=== PATIENT | male | born 2000 | race Caucasian/White ===

== ENCOUNTER 2020-11-19 12:57 | Emergency (ER) | payer OTHER, SELFPAY ==
[2020-11-19 13:05] VITALS: BP 126/66; PULSE 81; RESP 18; TEMP 36.9; O2SAT 98
--- NOTE | 2020-11-19 13:13 | ED.URI ---
HPI - URI/Sore Throat General Chief Complaint: Upper Respiratory Infection Stated Complaint: EARACHE/SORE THROAT Source: patient and RN notes reviewed Limitations: no limitations History of Present Illness HPI Narrative: The vaccinated patient, a non-smoker/nondrinker student, presents 1/2-week history of sore throat with very scant cough, congestion. Symptoms are mild, unrelieved OTC preparations like Vicks. He was last tested for Covid before symptom onset; no loss of taste/smell, CP, wheezing/sneezing S OB, vomiting/diarrhea Related Data Allergies Allergy/AdvReac Type Severity Reaction Status Date / Time No Known Allergies Allergy Verified 11/19/20 13:17 Review of Systems Review of Systems: General/Constitutional: No weight loss,fever Eyes: N0: Redness,discharge Ears/Nose/Throat: No: Epistaxis,ear discharge Respiratory: Denies: Hemoptysis Gastrointestinal: No Vomiting, Bleeding-rectal Skin: No Lumps, eruption Neurologic: No Focal Weakness,Sz Hematologic: Denies: Petechiae/Purpura Psychiatric: No: Suicida ideationl All Other Systems: Reviewed and Negative PMFSH Comments At time of signature, agree with nursing past medical, surgical, social and family history. There is no relevant family history pertinent to the presenting complaint Exam Narrative: General Appearance: Well appearing, Well nourished EYE: PERRLA, Conjunctiva clear Ears: Auditory canal normal, TM mostly obscured by wax Nose: Rhinorrhea, Mucousal erythema Mouth/Throat: MM moist, Uvula midline, Pharyngeal erythema Neck: Supple, No adenopathy Respiratory: No respiratory distress, Breath sounds equal, Clear to auscultation Cardiovascular: RRR, No JVD Musculoskeletal: Non tender, Normal strength Skin: Warm, Dry Neurological: A&O x3, CN II-XII intact Psychiatric: Normal mood, Normal affect Course Vital Signs Vital signs: Vital Signs Temperature 98.4 F 11/19/20 13:05 Pulse Rate 81 11/19/20 13:05 Respiratory Rate 18 11/19/20 13:05 Blood Pressure 126/66 11/19/20 13:05 Pulse Oximetry 98 11/19/20 13:05 Temperature 98.4 F 11/19/20 13:05 Pulse Rate 81 11/19/20 13:05 Respiratory Rate 18 11/19/20 13:05 Blood Pressure 126/66 11/19/20 13:05 Pulse Oximetry 98 11/19/20 13:05 MDM - URI/Sore Throat Lab Data Labs: Lab Results 11/19/20 Range/Units 13:12 POC SARS CoV-2 Ag Negative (Negative) Strep Screen Presumptive Negative *(Reference Range: Negative)* Discharge Plan Discharge Clinical Impression: Odynophagia Patient Disposition: Home, Self-Care Condition: Stable Instructions: Pharyngitis (ED) Prescriptions: New azithromycin 250 mg tablet See Rx Instructions .ROUTE .COMPLEX Qty: 6 RF: 0 lidocaine HCl [Lidocaine Viscous] 2 % solution 5 ml MUCOUS MEM QID PRN (Reason: pain) Qty: 100 RF: 0 Follow-up/Referrals: UNKNOWN,DOCTOR [Primary Care Provider] - Stand Alone Forms: Work/School Release IP
== END 2020-11-19 13:58 | disposition home or self-care (01) ==
PROVIDERS: Emergency Provider Emergency Medicine
DX: R13.10 Dysphagia, unspecified (principal); Z20.822 Contact with and (suspected) exposure to COVID-19
CPT/HCPCS: 87081; 87426; 87880; 99213; C9803; G0463

== ENCOUNTER 2021-05-20 13:24 | Emergency (ER) | payer OTHER, SELFPAY ==
[2021-05-20 13:30] VITALS: BP 130/75; PULSE 72; RESP 12; TEMP 36.7; O2SAT 99
--- NOTE | 2021-05-20 13:32 | ED.URI ---
HPI - URI/Sore Throat General Chief Complaint: Upper Respiratory Infection Stated Complaint: COLD/FLU Time Seen by Provider: 05/20/21 13:32 Source: patient Mode of arrival: ambulatory Limitations: no limitations History of Present Illness HPI Narrative: 20-year-old male presents with complaint of mucus and cough for 9 days. Reports the cough is worse at night and when active. Has tried Mucinex DM with no relief. Denies shortness of breath. Denies chest pain. No fever or chills. Patient reports that this is not allergy related reports that he had allergy testing last year for 200 things and he was not allergic to anything. All systems reviewed and negative except as noted above. Related Data Allergies Allergy/AdvReac Type Severity Reaction Status Date / Time No Known Allergies Allergy Verified 11/19/20 13:17 Review of Systems Review of Systems: CONSTITUTIONAL: Denies fever, chills, or sweats. EYES: Denies visual changes, redness, or discharge. ENT: Denies rhinorrhea, congestion, sore throat, or otalgia. CARDIOVASCULAR: Denies chest pain, palpitations, or edema. RESPIRATORY: Reports cough and chest congestion. Denies dyspnea. GASTROINTESTINAL: Denies abdominal pain, nausea, vomiting, or diarrhea. GENITOURINARY: Denies dysuria or hematuria. SKIN: Denies rash or itching. MUSCULOSKELETAL: Denies back pain, joint pain, or myalgia. NEUROLOGIC: Denies headache, numbness, or weakness. PSYCHIATRIC: Denies anxiety or depression. All other systems reviewed are negative, except as documented in HPI. PMFSH Comments At time of signature, agree with nursing past medical, surgical, social and family history. There is no relevant family history pertinent to the presenting complaint. Exam Narrative: GENERAL: This is a well-nourished, well-developed patient, in no apparent distress. HEAD: normocephalic, atraumatic. EYES: PERRL. Sclera clear/white. Vision is grossly intact. EARS: External ears normal, auditory canals clear and without drainage, TMs normal without perforation. Hearing grossly intact. NOSE: External nose normal with no obvious nasal discharge, nares without redness, no rhinorrhea. THROAT: Mucous membranes moist, posterior pharynx clear. NECK: Neck supple, non-tender without lymphadenopathy, masses or thyromegaly. CARDIOVASCULAR: Regular rate and rhythm without murmurs, gallops, or rubs. RESPIRATORY: Clear to auscultation. Breath sounds equal bilaterally. No wheezes, rales, or rhonchi. SKIN: warm, Dry, intact with no suspicious lesions or rash, good texture and turgor. NEURO: awake, alert, and oriented to person, place and time. There were no obvious focal neurologic abnormalities. EXTREMITIES: Normal range of motion to all extremities. Course Course Level of Care: Express Care Visit Vital Signs Vital signs: Vital Signs Temperature 36.7 C 05/20/21 13:30 Pulse Rate 72 05/20/21 13:30 Respiratory Rate 12 05/20/21 13:30 Blood Pressure 130/75 05/20/21 13:30 Pulse Oximetry 99 05/20/21 13:30 Temperature 36.7 C 05/20/21 13:34 Pulse Rate 72 05/20/21 13:34 Respiratory Rate 12 05/20/21 13:34 Blood Pressure 130/75 05/20/21 13:34 Pulse Oximetry 99 05/20/21 13:34 Reviewed MDM - URI/Sore Throat MDM Narrative Medical decision making narrative: Patient is aware of diagnosis, understands and agrees to treatment plan. Anticipatory guidance given. Patient agrees to follow-up as directed and is aware of reasons to seek care at the emergency department. Portions of this record may have been created with voice recognition software Differential Diagnosis Differential diagnosis: Likely upper respiratory infection, croup, viral infection and bronchitis Discharge Plan Discharge Clinical Impression: Acute bronchitis Patient Disposition: Home, Self-Care Condition: Stable Instructions: Antibiotic Form, Acute Bronchitis (ED) Additional Instructions: Take medications as prescribed to gabbi
[2021-05-20 13:34] VITALS: BP 130/75; PULSE 72; RESP 12; TEMP 36.7; O2SAT 99
== END 2021-05-20 13:47 | disposition home or self-care (01) ==
PROVIDERS: Emergency Provider Nurse Practitioner Family
DX: J20.9 Acute bronchitis, unspecified (principal)
CPT/HCPCS: 99213; G0463

== ENCOUNTER 2021-11-15 17:56 | Emergency (ER) | payer OTHER, SELFPAY ==
--- NOTE | 2021-11-15 17:58 | ED.MALEGU ---
HPI - Male Genitourinary General Chief complaint: Urogenital-Male Stated complaint: testicular pain Time Seen by Provider: 11/15/21 17:58 Source: patient Mode of arrival: ambulatory Limitations: no limitations History of Present Illness HPI Narrative: Mr. Valiente is a 20-year-old male patient presenting to the clinic today with complaints of testicular pain that began this afternoon. He reports pain in right testicle began after running this afternoon. He reports that he feels as though his right testicle swollen and he noticed that his scrotal sac was black and blue. He states that it is a dull ache to this area and he thinks he felt a lump over the right testicle. Did ejaculate this afternoon and said it was painful/burning-no blood in ejaculation Related Data Home Medications Medication Instructions Recorded Confirmed No Home Medications 11/15/21 11/15/21 Allergies Allergy/AdvReac Type Severity Reaction Status Date / Time No Known Allergies Allergy Verified 11/15/21 18:03 Review of Systems Review of Systems: Pertinent positives per HPI. Patient denies any fever, chills, rash, headache, visual changes, dizziness, cough, runny nose, sore throat, shortness of breath, chest pain, palpitations, nausea, vomiting, diarrhea, constipation, abdominal pain, or any urinary issues. PMFSH Comments At the time of my signature, I reviewed and agree with the nursing past medical, surgical, social, and family history. There is no relevant family history pertinent to the patient complaint. Exam Narrative: General: Well-developed, well nourished, in no apparent distress. Head: Normocephalic, atraumatic. Cardio: Regular rate and rhythm, s1 and s2 normal, no murmur appreciated. Resp: Clear to auscultation bilaterally, no rhonchi, rales, wheezing or rubs. Abdomen: Soft, pliable, bowel sounds present in all quadrants, non-tender to palpation, no organomegly, no CVAT tenderness. : Normal circumcised male, no lesions or masses noted on the vas deferens or penile shaft, tenderness to palpation over the right testicle, no testicle or scrotal mass palpable, diminished right cremasteric reflex Course Course Emergency Course: Portions of this record may have been created with voice recognition software. Level of Care: Express Care Visit Vital Signs Vital signs: Vital Signs Temperature 37.5 C 11/15/21 18:04 Pulse Rate 110 H 11/15/21 18:04 Respiratory Rate 18 11/15/21 18:04 Blood Pressure 154/84 H 11/15/21 18:04 Pulse Oximetry 100 11/15/21 18:04 Temperature 37.5 C 11/15/21 18:04 Pulse Rate 110 H 11/15/21 18:04 Respiratory Rate 18 11/15/21 18:04 Blood Pressure 154/84 H 11/15/21 18:04 Pulse Oximetry 100 11/15/21 18:04 Vital signs reviewed Transfer Transfered to: [facility] Transportation: Other (Private car) Transfer rationale: Right testicular pain rule out testicular torsion Accepting physician: Dr. York Transfer comments: Transfer via private car MDM - Male Genitourinary MDM Narrative Medical decision making narrative: At the time of visit patient is resting comfortably on the exam table. Complaining of right testicular pain-complaints of swelling, and pain with diminished cremasteric reflex noted. Patient rating pain currently a 4 out of 10 states a dull ache. Recommend further evaluation with ultrasound to rule out testicular torsion. Contacted Alesia who is the charge nurse at [facility] ED and report was given- Dr. York accepted patient. Differential Diagnosis Differential diagnosis: Likely epididymitis, inguinal hernia and other (Variceal, cystocele, testicular torsion) Discharge Plan Discharge Clinical Impression: Testicular pain, right Patient Disposition: Acute Care Hospital Condition: Stable Additional Instructions: You were evaluated by the provider in the Express care today, and it is recommended that you promptly go to the Emergency Room as your illn
[2021-11-15 18:04] VITALS: BP 154/84; PULSE 110; RESP 18; TEMP 37.5; O2SAT 100
== END 2021-11-15 18:21 | disposition short-term general hospital (02) ==
PROVIDERS: Emergency Provider Nurse Practitioner Family
DX: N50.811 Right testicular pain (principal)
CPT/HCPCS: 99212; 99213; G0463

== ENCOUNTER 2021-11-15 18:37 | Emergency (ER) | payer OTHER, SELFPAY ==
--- NOTE | ~2021-11-15 | US_ITS ---
EXAMINATION: US scrotum doppler DATE: 11/15/2021 20:01 INDICATION: Scrotal pain, eval for torsion . TECHNIQUE: Grayscale and Doppler ultrasound images of the testes were obtained. COMPARISON: None. FINDINGS: The right testis measures 4.7 x 3.3 x 2.0 cm. The left testis measures 4.9 x 3.3 x 1.9 cm. No testicular mass. There is normal vascular flow to both testes. The right epididymis is normal with normal vascular flow. The left epididymis is normal with normal vascular flow. There is no varicocel e. Small left hydrocele. IMPRESSION: Small left hydrocele. Otherwise normal scrotal ultrasound findings. Reviewed, dictated and finalized at location K.
[2021-11-15 18:53] VITALS: BP 130/73; PULSE 96; RESP 18; TEMP 36.7; O2SAT 100
[2021-11-15] MEDS: ACETAMINOPHEN 500 MG TABLET 1000 MG PO (19:22)
--- NOTE | 2021-11-15 19:24 | ED.MALEGU ---
HPI - Male Genitourinary General Chief complaint: Urogenital-Male Stated complaint: testicular pain, rule out torsion from UC Time Seen by Provider: 11/15/21 19:01 History of Present Illness HPI Narrative: This is a 20-year-old male who denies past medical history, presenting the emergency department complaining of scrotal pain. He states approximately 8 hours prior to arrival, he was running and afterwards noted swelling and bruised appearance to the scrotum accompanied with a sharp, 8/10 pain that did not radiate. The pain has since improved to 4/10. He states he also had pain with ejaculation this afternoon. He was evaluated in urgent care center and referred here for ultrasound. He denies other trauma to the scrotum. He denies abdominal pain or vomiting. Related Data Allergies Allergy/AdvReac Type Severity Reaction Status Date / Time No Known Allergies Allergy Verified 11/15/21 19:18 Review of Systems Review of Systems: CONSTITUTIONAL: Denies fever, chills, or sweats. CARDIOVASCULAR: Denies chest pain, palpitations, or edema. RESPIRATORY: Denies cough or dyspnea. GASTROINTESTINAL: Denies abdominal pain, nausea, vomiting, or diarrhea. GENITOURINARY: Scrotal pain and swelling, denies dysuria or hematuria. SKIN: Denies rash or itching. MUSCULOSKELETAL: Denies back pain, joint pain, or myalgia. NEUROLOGIC: Denies headache, numbness, dizziness, or weakness. PSYCHIATRIC: Denies anxiety or depression. Exam Narrative: GENERAL: Well-appearing, well-nourished, and in no acute distress. HEAD: Normocephalic, atraumatic. EYES: PERRLA and EOMI. CHEST: Clear to auscultation. No respiratory distress. No wheezes rales or rhonchi HEART: Regular rate and rhythm. No murmur heard. Normal peripheral pulses. ABDOMEN: Soft, nontender, nondistended, normal active bowel sounds. : Circumcised with normal appearing penis, bilateral high riding testes with diminished cremasteric reflex though in normal lie, mild tenderness to palpation bilaterally EXTREMITIES: Normal range of motion. No edema. SKIN: Warm, dry, no rash. NEURO: No focal deficits. Alert and oriented x3. PSYCH: Normal mood and affect. Course Vital Signs Vital signs: Vital Signs Temperature 98.0 F 11/15/21 18:53 Pulse Rate 96 10/08/22 18:53 Respiratory Rate 18 11/15/21 18:53 Blood Pressure 130/73 11/15/21 18:53 Pulse Oximetry 100 11/15/21 18:53 Oxygen Delivery Room Air 11/15/21 18:53 Temperature 98.0 F 11/15/21 18:53 Pulse Rate 96 11/15/21 18:53 Respiratory Rate 18 11/15/21 18:53 Blood Pressure 130/73 11/15/21 18:53 Pulse Oximetry 100 11/15/21 18:53 Oxygen Delivery Room Air 11/15/21 18:53 MDM - Male Genitourinary MDM Narrative Medical decision making narrative: Plan: Imaging, UA, pain control Differential Diagnosis Differential diagnosis: Likely urinary tract infection, epididymitis and other (Torsion, other) Lab Data Labs: Lab Results 11/15/21 Range/Units 19:24 Urine Color Yellow (Yellow) Urine Appearance Cloudy H (Clear) Urine pH 6.0 (5.0-9.0) Ur Specific [place] 1.030 (1.001-1.035) Urine Protein Negative (Negative) mg/dL Urine Glucose (UA) Negative (Negative) mg/dL Urine Ketones 2+ H (Negative) mg/dL Ur Blood (Man) Negative (Negative) Urine Nitrate Negative (Negative) Urine Bilirubin Negative (Negative) Urine Urobilinogen Negative (<2.0) mg/dL Leukocyte Esterase Rfl Negative (Negative) JAYLYN/UL Urine RBC 3-5 H (0-2) /hpf Urine WBC 0-3 /hpf Urine Bacteria Trace /hpf Urine Mucus Rare /lpf Discharge Plan Discharge Clinical Impression: Acute pain in scrotum, Acute epididymitis Patient Disposition: Home, Self-Care Condition: Stable Instructions: Antibiotic Form, Epididymitis (ED) Additional Instructions: You were seen in the emergency department. An ultrasound was not concerning for testicular torsion or mass but did show small amount of fl
[2021-11-15 19:38] LABS: Add Urine Microscopic? YES; Appearance Urine Cloudy (Clear); Bacteria Urine Trace /hpf; Bilirubin Urine Negative (Negative); Blood Urine Negative (Negative); Color Urine Yellow (Yellow); Glucose Urine UA Negative (Negative); Ketones Urine 2+ mg/dL (Negative); Leukocyte Esterase Ur Negative LEU/UL (Negative); Mucus Urine Rare /lpf; Nitrate Urine Negative (Negative); Protein Urine Negative (Negative); Urobilinogen Urine Negative mg/dL (<2.0); WBC Urine 0-3 /hpf
== END 2021-11-15 20:35 | disposition home or self-care (01) ==
LOC: ANHED 20:24
PROVIDERS: Emergency Provider Preventive Medicine Aerospace Medicine
DX: N45.1 Epididymitis (principal)
CPT/HCPCS: 76870; 81001; 93976; 99284; A9270

== ENCOUNTER 2021-11-20 11:17 | Outpatient (CLI) | payer OTHER, SELFPAY ==
[2021-11-20 20:22] LABS: Alanine Aminotransferase 22 U/L (6-50); Albumin Level 4.8 g/dL (3.5-5.1); Alkaline Phosphatase 40 U/L (38-126); Anion Gap 15 mmol/L (8-16); Aspartate Amino Transferase 29 U/L (17-59); Bilirubin,Total 0.8 mg/dL (0.2-1.3); Blood Urea Nitrogen 12 mg/dL (9-20); CRP < 0.5 mg/dL (<1.0); Calcium 9.6 mg/dL (8.4-10.2); Carbon Dioxide 27 mmol/L (22-30); Chloride 101 mmol/L (98-107); Estimated Glomerular Filt Rate > 60; Glucose 89 mg/dL (65-110); Sodium 143 mmol/L (137-145)
[2021-11-20 20:24] LABS: Basophils Percent Auto 0.4 % (0.2-1.2); Eosinophils Percent Auto 0.4 % (0-4.4); Hematocrit 49.8 % (42.0-52.0); Hemoglobin 16.4 g/dL (14.0-18.0); Lymphocytes Absolute Auto 1.24 K/mm3 (0.9-3.2); Mean Corpuscular HGB Conc 32.9 g/dl (32-36); Mean Corpuscular Hemoglobin 31.4 pg (26-34); Mean Corpuscular Volume 95.2 fl (80-100); Mean Platelet Volume 11.2 fl (7.4-10.4); Monocytes Absolute Auto 0.4 K/mm3 (0.1-0.6); Monocytes Percent Auto 7.8 % (2.6-8.5); Neutrophils Absolute Auto 3.7 K/mm3 (1.3-6.7); Neutrophils Percent Auto 68.4 % (45.5-73.1); Platelet Count Result 275 k/mm3 (150-375); Red Blood Count 5.23 M/mm3 (4.6-6.20); Red Cell Distribution Width 12.8 % (11.5-14.5); White Blood Count 5.4 K/mm3 (4.5-10.0)
== END 2021-11-20 11:18 | disposition home or self-care (01) ==
LOC: ANHGOSHLAB 11:19
PROVIDERS: Visit Provider Emergency Medicine
DX: R10.30 Lower abdominal pain, unspecified (principal)
CPT/HCPCS: 36415; 80053; 85025; 86140

== ENCOUNTER 2021-12-11 11:06 | Emergency (ER) | payer OTHER, SELFPAY ==
[2021-12-11 11:21] VITALS: BP 117/67; PULSE 80; RESP 16; TEMP 36.9; O2SAT 100
--- NOTE | 2021-12-11 12:03 | ED.ABDPAIN ---
HPI - Abdominal Pain General Chief Complaint: Abdominal Pain Stated Complaint: abdominal pain; rash Time Seen by Provider: 12/11/21 11:51 Source: patient Mode of arrival: ambulatory Limitations: no limitations History of Present Illness HPI narrative: Patient presents today with several complaints. First, he complains of right-sided abdominal pressure that has been present for 3 days. It is intermittent. It is not associated with any other symptoms to include nausea, vomiting, diarrhea, constipation, fever, or urinary symptoms. It is not affected by eating. Pain increases when he bends the right side. He currently rates his pain 2/10. He has tried no [id number] treatment prior to arrival. Secondly, patient is complaining of some lesions to the corners of his mouth the past 3 days. He has been trying Vaseline without relief. Reports he has had a rash similar to this in the summer time that he applied Vaseline to that resolved. Lastly, he is asking for a refill of his prescription dandruff shampoo, but does not know the name. He has noticed an increase in his symptoms in the fall. Related Data Allergies Allergy/AdvReac Type Severity Reaction Status Date / Time No Known Allergies Allergy Verified 12/11/21 11:30 Review of Systems Review of Systems: CONSTITUTIONAL: Denies body aches, fever, chills, or sweats. EYES: Denies visual changes, redness, or discharge. ENT: Denies rhinorrhea, congestion, sore throat, or otalgia. CARDIOVASCULAR: Denies chest pain, palpitations, or edema. RESPIRATORY: Denies cough or dyspnea. GASTROINTESTINAL: Denies nausea, vomiting, or diarrhea.+ Abdominal pressure GENITOURINARY: Denies dysuria or hematuria. SKIN: Denies rash, itching, or wounds.+ dandruff, lesions to corner of mouth MUSCULOSKELETAL: Denies back pain, joint pain, or myalgia. NEUROLOGIC: Denies headache, numbness, tingling, or weakness. PSYCH: Denies depression or anxiety. [facility] Past Medical History Medical History Asthma Family History Family History Other Diabetes mellitus Asthma Social History Social History Smoking status: Never smoker Alcohol intake: current Alcohol use details: Social alcohol use Comments At time of signature, I have reviewed and agree with nursing past medical, surgical, social and family history unless otherwise noted. Please see nursing chart for further information. There is no relevant family history pertinent to the presenting complaint Exam Narrative: GENERAL: Well-appearing, well-nourished, and in no acute distress. HEAD: Normocephalic, atraumatic. EYES: EOMI. No redness or drainage. Conjunctivae normal. ENT: Mucous membranes pink and moist. patient has some small papular lesions to the corners of both of his mouth. On the right side, he does have tiny bit of honey crusting. NECK: Normal AROM. Supple. No lymphadenopathy. CHEST: No respiratory distress. Clear to auscultation. HEART: Regular rate and rhythm. No murmur appreciated. Normal peripheral pulses. ABDOMEN: Soft, nondistended, normal active bowel sounds. Entire abdomen is nontender. MUSCULOSKELETAL: No bony tenderness. EXTREMITIES: Normal range of motion. No edema. SKIN: Warm, dry, no rash. Capillary refill normal. Normal skin turgor. Flaking of the scalp. NEURO: No focal deficits. Alert and oriented x3. Gait steady. PSYCH: Normal affect. No signs of depression or anxiety. Course Course Emergency Course: patient's abdomen is nontender and he is having no associated symptoms. Will refer him to his PCP for follow-up for the abdominal pain. he has been instructed to go to the ER if other symptoms arise or his abdominal pain worsens. Level of Care: Express Care Visit Vital Signs Vital signs: Vital Signs Temperatur
== END 2021-12-11 12:19 | disposition home or self-care (01) ==
PROVIDERS: Emergency Provider Nurse Practitioner
DX: R10.9 Unspecified abdominal pain (principal); K13.0 Diseases of lips; L01.00 Impetigo, unspecified; L21.0 Seborrhea capitis; J45.909 Unspecified asthma, uncomplicated
CPT/HCPCS: 99213; G0463

== ENCOUNTER 2021-12-11 13:03 | Emergency (ER) | payer OTHER, SELFPAY ==
--- NOTE | ~2021-12-11 | CT_ITS ---
EXAMINATION: CT abdomen pelvis w con DATE: 12/11/2021 14:43 INDICATION: Right lower quadrant abdominal pain. TECHNIQUE: Computed tomography (CT) of the abdomen and pelvis was performed with 100 mL Omnipaque-350 intravenous contrast. Automated exposure control and iterative reconstruction technique were employe d. The dose-length product was 205.05 mGy-cm. COMPARISON: None FINDINGS: Lung bases are clear. Visualized inferior heart is normal. No pericardial or pleural effusion. Liver, gallbladder, spleen, pancreas, bilateral adrenal glands and kidneys are normal. Moderate amount of s tool scattered throughout the colon. No abnormal bowel wall thickening or obstruction. Normal long wh ip-like appendix with distal tip near the bifurcation of the inferior vena cava and without surroundi ng inflammatory change to suggest acute appendicitis. Bladder is normal. No free intraperitoneal gas or fluid. No pathologically enlarged abdominal or pelvic lymphadenopathy. Bones are unremarkable. IMPRESSION: 1. No acute intra-abdominal/pelvic process. Specifically normal gallbladder and appendix. Reviewed, dictated and finalized at location B.
[2021-12-11 13:06] VITALS: BP 126/70; PULSE 81; RESP 20; TEMP 36.8; O2SAT 99
--- NOTE | 2021-12-11 13:25 | ED.ABDPAIN ---
HPI - Abdominal Pain General Chief Complaint: Abdominal Pain Stated Complaint: Right ABD Pain Time Seen by Provider: 12/11/21 13:25 Source: patient Mode of arrival: ambulatory Limitations: no limitations History of Present Illness HPI narrative: Patient is a 21-year-old male presenting to the emergency department for evaluation of right middle abdominal pain. Pain has been present and worsening over the past 72 hours described as aching, cramping in nature and exacerbated with movement. No radiation to the flank, chest, back. Patient denies nausea, vomiting. He reports mild subjective fever. Patient denies diarrhea or constipation. He reports cloudiness to his urine but denies dysuria, hematuria, testicular pain, penile pain, lesions or discharge. Patient with history of inguinal surgery, is supposed to have his inguinal hernia repair next week in [facility]. Patient without history of previous abdominal surgery. Patient denies recent heavy bending or lifting. No bruising or masses. Related Data Allergies Allergy/AdvReac Type Severity Reaction Status Date / Time No Known Allergies Allergy Verified 12/11/21 11:30 Review of Systems Review of Systems: CONSTITUTIONAL: Denies fever, chills, or sweats. EYES: Denies visual changes, redness, or discharge. ENT: Denies rhinorrhea, congestion, sore throat, or otalgia. CARDIOVASCULAR: Denies chest pain, palpitations, or edema. RESPIRATORY: Denies cough or dyspnea. GASTROINTESTINAL: Reports right-sided abdominal pain, denies nausea, vomiting, diarrhea GENITOURINARY: Denies dysuria or hematuria. SKIN: Denies rash or itching. MUSCULOSKELETAL: Denies back pain, joint pain, or myalgia. NEUROLOGIC: Denies headache, numbness, or weakness. [facility] Past Medical History Medical History (Updated 12/11/21 @ 15:19 by Yesenia Parada MD) Asthma Right sided abdominal pain Family History Family History Other Diabetes mellitus Asthma Social History Social History Smoking status: Never smoker Alcohol intake: current Alcohol use details: Social alcohol use Exam Narrative: GENERAL: Awake, alert, conversant HEAD: Normocephalic, atraumatic. EYES: PERRLA and EOMI. ENT: Nares clear, no rhinorrhea or epistaxis. Mucous membranes moist. NECK: Supple. CHEST: No respiratory distress, breathing even and non labored HEART: Regular rate, sinus rhythm ABDOMEN:Non distended, tender in the right mid abdomen which is reproducible with palpation and movement, no McBurney's point tenderness, negative Ring sign, no rebound, rigidity or guarding EXTREMITIES: Normal range of motion. No edema. SKIN: Warm, dry, no rash. NEURO:No focal deficits. Alert and oriented x3, ambulatory with a narrow base, steady gait Course Vital Signs Vital signs: Vital Signs Temperature 36.8 C 12/11/21 13:06 Pulse Rate 81 12/11/21 13:06 Respiratory Rate 20 12/11/21 13:06 Blood Pressure 126/70 12/11/21 13:06 Pulse Oximetry 99 12/11/21 13:06 Temperature 36.8 C 12/11/21 13:06 Pulse Rate 81 12/11/21 13:06 Respiratory Rate 20 12/11/21 13:06 Blood Pressure 126/70 12/11/21 13:06 Pulse Oximetry 99 12/11/21 13:06 MDM - Abdominal Pain MDM Narrative Medical decision making narrative: Patient presenting for evaluation of right-sided abdominal pain which is reproducible on exam and worsened with movement. It does seem most consistent to musculoskeletal strain. Does not seem consistent with acute infectious process given location of pain and quality of the pain. Vital signs are stable. Laboratory results are reassuring. No evidence of leukocytosis or evidence of infection. CT scan is normal. No evidence of gallbladder pathology, diverticulitis, appendicitis. Patient advised rest, ice, ibuprofen, Tylenol to help with symptoms. Patient then discharged home. Diff
[2021-12-11 13:32] LABS: Basophils Percent Auto 0.1 % (0.2-1.2); Eosinophils Percent Auto 0.4 % (0-4.4); Hematocrit 46.8 % (42.0-52.0); Immature Granulocyte Absolute 0.02 K/mm3 (0.00-0.031); Immature Granulocyte Percent A 0.3 % (0-0.5); Lymphocytes Absolute Auto 1.78 K/mm3 (0.9-3.2); Lymphocytes Percent Auto 23.9 % (18.3-44.2); Mean Corpuscular HGB Conc 34.2 g/dl (32-36); Mean Corpuscular Hemoglobin 31.6 pg (26-34); Mean Corpuscular Volume 92.5 fl (80-100); Mean Platelet Volume 10.8 fl (7.4-10.4); Monocytes Absolute Auto 0.4 K/mm3 (0.1-0.6); Monocytes Percent Auto 5.5 % (2.6-8.5); Neutrophils Absolute Auto 5.2 K/mm3 (1.3-6.7); Neutrophils Percent Auto 69.8 % (45.5-73.1); Platelet Count Result 245 k/mm3 (150-375); Red Blood Count 5.06 M/mm3 (4.6-6.20); Red Cell Distribution Width 12.6 % (11.5-14.5); White Blood Count 7.5 K/mm3 (4.5-10.0)
[2021-12-11 13:47] LABS: Alanine Aminotransferase 24 U/L (6-50); Alkaline Phosphatase 46 U/L (38-126); Anion Gap 11 mmol/L (8-16); Aspartate Amino Transferase 30 U/L (17-59); Bilirubin,Total 1.1 mg/dL (0.2-1.3); Blood Urea Nitrogen 16 mg/dL (9-20); Calcium 9.2 mg/dL (8.4-10.2); Carbon Dioxide 30 mmol/L (22-30); Chloride 99 mmol/L (98-107); Estimated CRCL calculation 112 ml/min; Estimated Glomerular Filt Rate > 60; Glucose 109 mg/dL (65-110); Lipase 46 U/L (23-300); Potassium 4.2 mmol/L (3.4-5.0); Sodium 140 mmol/L (137-145)
[2021-12-11 14:20] LABS: Appearance Urine Cloudy (Clear); Bilirubin Urine Negative (Negative); Blood Urine Negative (Negative); Color Urine Yellow (Yellow); Glucose Urine UA Negative (Negative); Ketones Urine Negative (Negative); Leukocyte Esterase Ur Negative LEU/UL (Negative); Nitrate Urine Negative (Negative); Protein Urine Negative (Negative); Urobilinogen Urine 0.2 mg/dL (<2.0); pH Urine 7.5 (5.0-9.0)
[2021-12-11 14:28] LABS: Amorphous Sediment Urine Moderate; Bacteria Urine Trace /hpf; WBC Urine 0-3 /hpf
[2021-12-11 14:45] LABS: Add Urine Microscopic? YES
[2021-12-11 15:36] VITALS: BP 131/70; PULSE 70; RESP 12; O2SAT 98
== END 2021-12-11 15:37 | disposition home or self-care (01) ==
PROVIDERS: Emergency Provider Emergency Medicine
DX: R10.9 Unspecified abdominal pain (principal); J45.909 Unspecified asthma, uncomplicated
CPT/HCPCS: 36415; 74177; 80053; 81001; 83690; 85025; 99284; Q9967

== ENCOUNTER → 2021-12-18 14:02 | Outpatient (CLI) | payer OTHER, SELFPAY ==
--- NOTE | ~2021-12-18 | US_ITS ---
EXAMINATION: US scrotum doppler DATE: 12/18/2021 14:26 INDICATION: Orchalgia. TECHNIQUE: Grayscale and Doppler ultrasound images of the testes were obtained. COMPARISON: Ultrasound 11/15/2021 FINDINGS: The right testis measures 5.0 x 2.2 x 3.1 cm. The left testis measures 5.3 x 2.4 x 3.1 cm. There is a scrotolith on the left. There is normal vascular flow to both testes. The right epididymis is normal with normal vascular flow. The left epididymis is normal with normal vascular flow. There is no varicocele or hydrocele. IMPRESSION: 1. No etiology for the patient's symptoms. Reviewed, dictated and finalized at location A. [facility] ATTENDANT
== END ==
PROVIDERS: PCP Nurse Practitioner; Visit Provider Nurse Practitioner
DX: N50.819 Testicular pain, unspecified (principal)
CPT/HCPCS: 76870; 93976

== ENCOUNTER 2022-04-13 09:37 | Outpatient (CLI) | payer OTHER, SELFPAY ==
[2022-04-13 19:32] LABS: Basophils Percent Auto 0.6 % (0.2-1.2); Eosinophils Absolute Auto 0.1 K/mm3 (0-0.3); Hematocrit 48.8 % (42.0-52.0); Hemoglobin 16.4 g/dL (14.0-18.0); Lymphocytes Absolute Auto 1.89 K/mm3 (0.9-3.2); Lymphocytes Percent Auto 39.1 % (18.3-44.2); Mean Corpuscular HGB Conc 33.6 g/dl (32-36); Mean Corpuscular Hemoglobin 30.8 pg (26-34); Mean Corpuscular Volume 91.6 fl (80-100); Mean Platelet Volume 11.4 fl (7.4-10.4); Monocytes Absolute Auto 0.4 K/mm3 (0.1-0.6); Monocytes Percent Auto 7.7 % (2.6-8.5); Neutrophils Absolute Auto 2.5 K/mm3 (1.3-6.7); Neutrophils Percent Auto 51.6 % (45.5-73.1); Platelet Count Result 244 k/mm3 (150-375); Red Blood Count 5.33 M/mm3 (4.6-6.20); Red Cell Distribution Width 12.3 % (11.5-14.5); White Blood Count 4.8 K/mm3 (4.5-10.0)
[2022-04-13 20:53] LABS: Alanine Aminotransferase 23 U/L (6-50); Alkaline Phosphatase 41 U/L (38-126); Anion Gap 8 mmol/L (8-16); Aspartate Amino Transferase 44 U/L (17-59); Bilirubin,Total 1.5 mg/dL (0.2-1.3); Blood Urea Nitrogen 15 mg/dL (9-20); Calcium 9.6 mg/dL (8.4-10.2); Carbon Dioxide 31 mmol/L (22-30); Chloride 99 mmol/L (98-107); Estimated Glomerular Filt Rate > 60; Glucose 73 mg/dL (65-110); Potassium 4.1 mmol/L (3.4-5.0); Sodium 138 mmol/L (137-145)
[2022-04-17 11:59] LABS: Testosterone Total 650 ng/dL (250-1100)
== END 2022-04-13 09:38 | disposition home or self-care (01) ==
LOC: ANHGOSHLAB 09:38
PROVIDERS: PCP Nurse Practitioner; Visit Provider Family Medicine
DX: R53.83 Other fatigue (principal)
CPT/HCPCS: 36415; 80053; 84403; 84443; 85025

== ENCOUNTER 2022-08-04 13:49 | Outpatient (CLI) | payer OTHER, SELFPAY ==
[2022-08-04 14:58] LABS: Alanine Aminotransferase 19 U/L (6-50); Albumin Level 4.7 g/dL (3.5-5.1); Alkaline Phosphatase 36 U/L (38-126); Anion Gap 7 mmol/L (8-16); Aspartate Amino Transferase 26 U/L (17-59); Bilirubin,Total 1.5 mg/dL (0.2-1.3); Blood Urea Nitrogen 10 mg/dL (9-20); Carbon Dioxide 33 mmol/L (22-30); Chloride 100 mmol/L (98-107); Estimated Glomerular Filt Rate > 60; Glucose 74 mg/dL (65-110); Potassium 3.9 mmol/L (3.4-5.0); Sodium 140 mmol/L (137-145)
[2022-08-04 15:09] LABS: Hematocrit 45.7 % (42.0-52.0); Hemoglobin 15.5 g/dL (14.0-18.0); Mean Corpuscular HGB Conc 33.9 g/dl (32-36); Mean Corpuscular Hemoglobin 30.7 pg (26-34); Mean Corpuscular Volume 90.5 fl (80-100); Mean Platelet Volume 11.4 fl (7.4-10.4); Platelet Count Result 245 k/mm3 (150-375); Red Blood Count 5.05 M/mm3 (4.6-6.20); Red Cell Distribution Width 12.4 % (11.5-14.5); White Blood Count 5.8 K/mm3 (4.5-10.0)
[2022-08-04 16:04] LABS: Erythrocyte Sedimentation Rate 5 mm/hr (0-20)
[2022-08-07 10:38] LABS: Immunoglobulin A 178 mg/dL (47-310); TTG IGA AB <1.0 U/mL (<15.0)
[2022-08-12 18:12] LABS: Calprotectin, Stool 9 mcg/g
[2022-08-13 22:07] LABS: Pancreatic Elastase, Stool >500 mcg/g
== END 2022-08-04 13:50 | disposition home or self-care (01) ==
PROVIDERS: Visit Provider Nurse Practitioner
DX: R10.9 Unspecified abdominal pain (principal); R19.4 Change in bowel habit; R19.5 Other fecal abnormalities; Z86.19 Personal history of other infectious and parasitic diseases
CPT/HCPCS: 36415; 80053; 82653; 82784; 83993; 84443; 85027; 85652; 86140; 86364

== ENCOUNTER 2022-08-31 02:40 | Day surgery (SDC) | payer OTHER, SELFPAY ==
[2022-08-20 14:51] VITALS: BMI 19.5
--- NOTE | 2022-08-28 18:09 | WPDANESEPP ---
Anes - Eval Pre Procedure Procedure: Operation Date: 08/31/22 13:30 Proposed Procedures p Colonoscopy - Rickey Delvalle MD Date/Time: 08/28/22 18:09 Pre Op Diagnosis: other fecal abnormalities,change in bowel habits, Patient Data Age: 21 Gender: M Height: 1.78 m Weight: 62 kg Allergies Allergy/AdvReac Type Severity Reaction Status Date / Time No Known Allergies Allergy Verified 08/20/22 14:26 Home Medications Medication Instructions Recorded Confirmed Type ketoconazole 2 % shampoo 1 applic topical 2XW #120 mL 12/11/21 08/20/22 Rx dicyclomine 10 mg capsule 10 mg PO BID PRN Abdominal Pain 08/04/22 08/20/22 History rifaximin 550 mg tablet (Xifaxan) 550 mg PO TID 14 days #42 tabs 08/04/22 08/20/22 Rx Patient hx anesthesia problems: none Family hx anesthesia problems: none Results Review: All pre-operative results and documents have been reviewed as part of the pre-operative evaluation. [facility] Past Medical History Medical History (Updated 08/28/22 @ 18:09 by Brittani De Paz CRNA) Abdominal pain Altered bowel habits Asthma Eczema History of infection due to ESBL Escherichia coli Mucus in stool Right sided abdominal pain Family History Family History Other Diabetes mellitus Asthma Social History Social History Smoking status: Never smoker Alcohol intake: current Drinks per week: 2 Alcohol use details: Social alcohol use Substance use: never Substance use type: does not use Living arrangements: with friend(s) Spiritual care concerns: No Exam Day of Procedure 08/28/22 18:09
[2022-08-31 12:12] VITALS: BP 117/80; PULSE 112; RESP 16; TEMP 36.8; O2SAT 100; BMI 17.9
[2022-08-31] MEDS: LACTATED RINGERS 1,000 ML 150 ML IV CONT (12:29)
--- NOTE | 2022-08-31 12:56 | P.PNAN_ITS ---
Anes - Eval Final PreProcedure Day of Procedure 08/31/22 12:56 Patient weight: thin Heart: regular rate and rhythm Lungs: clear to auscultation Airway: Mallampati scale class II Neurological: alert and oriented Last oral intake: >/= 8 hours ASA classification: II Emergent: no Anesthetic plan: proceed Anesthesia type and monitoring: general GIVS and standard monitoring Results Review: All pre-operative results and documents have been reviewed as part of the pre- operative evaluation. Informed Consent: The patient's anesthetic plan and its attendant risks and benefits were discussed with the patient/family/POA. Questions were solicited and answers provided to the satisfaction of the patient/family/POA.
--- NOTE | 2022-08-31 13:16 | WPDHPUPDATE1 ---
History and Physical Update Update Date/Time: 08/31/22 13:16 History and Physical has been reviewed, including an updated exam of the patient. There are NO changes in the patient's condition. Risks, benefits, and alternatives have been discussed and questions answered. Patient agrees to proceed with procedure.
[2022-08-31 13:43] VITALS: BP 95/60; PULSE 95; RESP 19; O2SAT 98
[2022-08-31 13:53] VITALS: BP 97/62; PULSE 84; RESP 18; O2SAT 98
[2022-08-31 14:03] VITALS: BP 105/70; PULSE 81; RESP 18; O2SAT 100
== END 2022-08-31 14:18 | disposition home or self-care (01) ==
PROVIDERS: Visit Provider Internal Medicine Gastroenterology
PROC: 0DJD8ZZ Inspection of Lower Intestinal Tract, Via Natural or Artificial Opening Endoscopic (ICD-10-PCS; CPT 45378; principal; 2022-08-31 13:30)
DX: Z12.11 Encounter for screening for malignant neoplasm of colon (principal); K64.8 Other hemorrhoids; K58.2 Mixed irritable bowel syndrome; J45.909 Unspecified asthma, uncomplicated; Z86.19 Personal history of other infectious and parasitic diseases
CPT/HCPCS: 45378; J2704; J7120

== ENCOUNTER 2022-12-16 11:31 | Emergency (ER) | payer OTHER, SELFPAY ==
[2022-12-16 11:41] VITALS: BP 124/86; PULSE 92; RESP 16; TEMP 37.1; O2SAT 99
--- NOTE | 2022-12-16 11:46 | ED.URI ---
HPI - URI/Sore Throat General Chief Complaint: Upper Respiratory Infection Stated Complaint: COUGH Time Seen by Provider: 12/16/22 11:46 Source: patient and RN notes reviewed History of Present Illness HPI Narrative: Patient is a 22-year-old male who presents to urgent care with complaints of cough only at night. Patient states that when he naps during the day he does not have the cough is only when he lays down in the evening. Patient states that he has been evaluated for the cough before and has been told he had reflux. Patient states that he took reflux medication in the past and did not help with his symptoms. Patient states that he does not eat or drink prior to laying down and does not drink caffeine, dairy products or acidic foods. Patient states that the only thing that helps is ?codeine cough syrup?. Patient has no sick symptoms. No other acute complaints. No acute distress noted. Patient aware of the plan of care. Some parts of this dictation were generated by voice recognition software and may contain typographical and/or grammatical inaccuracies. Related Data Home Medications Medication Instructions Recorded Confirmed dicyclomine 10 mg capsule 10 mg PO BID PRN Abdominal Pain 08/04/22 10/14/22 Allergies Allergy/AdvReac Type Severity Reaction Status Date / Time No Known Allergies Allergy Verified 10/14/22 15:08 Review of Systems Review of Systems: CONSTITUTIONAL: Denies fever, chills, or sweats. EYES: Denies visual changes, redness, or discharge. ENT: Denies rhinorrhea, congestion, sore throat, or otalgia. CARDIOVASCULAR: Denies chest pain, palpitations, or edema. RESPIRATORY: Reports of a cough only at night GASTROINTESTINAL: Denies abdominal pain, nausea, vomiting, or diarrhea. GENITOURINARY: Denies dysuria or hematuria. SKIN: Denies rash or itching. MUSCULOSKELETAL: Denies back pain, joint pain, or myalgia. NEUROLOGIC: Denies headache, numbness, or weakness. All other systems reviewed are negative, except as documented in HPI. [facility] Past Medical History Medical History (Updated 12/16/22 @ 11:57 by KORTNEY Wilson) Abdominal pain Altered bowel habits Asthma Eczema History of infection due to ESBL Escherichia coli Irritable bowel syndrome with diarrhea Mucus in stool Right sided abdominal pain Family History Family History Other Diabetes mellitus Asthma Social History Social History Smoking status: Never smoker Alcohol intake: current Drinks per week: 2 Alcohol use details: Social alcohol use Substance use: never Substance use type: does not use Living arrangements: with friend(s) Spiritual care concerns: No Course Course Level of Care: Express Care Visit Vital Signs Vital signs: Vital Signs Temperature 98.8 F 12/16/22 11:41 Pulse Rate 92 12/16/22 11:41 Respiratory Rate 16 12/16/22 11:41 Blood Pressure 124/86 12/16/22 11:41 Pulse Oximetry 99 12/16/22 11:41 Temperature 98.8 F 12/16/22 11:41 Pulse Rate 92 12/16/22 11:41 Respiratory Rate 16 12/16/22 11:41 Blood Pressure 124/86 12/16/22 11:41 Pulse Oximetry 99 12/16/22 11:41 Reviewed MDM - URI/Sore Throat MDM Narrative Medical decision making narrative: Spoke with patient regarding codeine cough syrup. We will not be prescribing that today. Advised patient to try avoid eating and drinking prior to laying down. Use the Tessalon Perles as needed for cough. Follow-up with your PCP within 2-5 days or for worsening symptoms or failure to improve. Differential Diagnosis Differential diagnosis: Likely upper respiratory infection, croup, otitis media, sinusitis, viral infection, bronchitis, influenza and pharyngitis Critical Care Time Critical Care Time Critical Care Time: No Discharge Plan Discharge Clinical Impression: Cough Qualifiers:
== END 2022-12-16 12:08 | disposition home or self-care (01) ==
PROVIDERS: Emergency Provider Nurse Practitioner Family
DX: R05.9 Cough, unspecified (principal); J45.909 Unspecified asthma, uncomplicated
CPT/HCPCS: 99213; G0463

== ENCOUNTER 2023-06-07 10:17 | Outpatient (CLI) | payer OTHER, SELFPAY ==
[2023-06-07 19:46] LABS: Anion Gap 7 mmol/L (4-12); Blood Urea Nitrogen 13 mg/dL (9-20); Calcium 9.7 mg/dL (8.4-10.2); Carbon Dioxide 30 mmol/L (22-30); Chloride 103 mmol/L (98-107); Estimated Glomerular Filt Rate > 60; Glucose 90 mg/dL (65-110); Potassium 4.3 mmol/L (3.4-5.0); Sodium 140 mmol/L (137-145)
[2023-06-07 19:59] LABS: Hemoglobin A1C 4.8 % (<5.7)
== END 2023-06-07 10:18 | disposition home or self-care (01) ==
LOC: ANHGOSHLAB 10:18
PROVIDERS: Visit Provider Nurse Practitioner
DX: R63.1 Polydipsia (principal); Z83.3 Family history of diabetes mellitus
CPT/HCPCS: 36415; 80048; 83036